=== PATIENT | female | born 1955 | race Caucasian/White ===

== ENCOUNTER 2019-11-12 19:05 | Observation (INO) ==
[2019-11-12] MEDS ORDERED: Naloxone 0.4 MG/ML INJ IVP PRN (22:19)
[2019-11-12] MEDS ORDERED: Lactulose 200 GM, Sodium Chloride IRRigation 700 ML RC ONE (22:52)
[2019-11-13 00:36] LABS: Hemoglobin 13.2 g/dL (11.5-15.4); Immature Granulocytes % 0.3 % (0-4); Red Cell Distribution Width 14.1 % (11.5-14.5)
[2019-11-13 00:38] LABS: Basophils % 0.6 %; Eosinophils # 0.1 K/mcL (0.0-0.6); Eosinophils % 2.2 %; Hematocrit 38.8 % (35.3-44.9); Lymphocytes % 28.4 %; Mean Corpuscular Volume 94.2 fL (83.0-100.0); Mean Platelet Volume 12.2 fL (9.4-12.4); Monocytes # 0.4 K/mcL (0.0-1.3); Neutrophils # 2.1 K/mcL (1.6-8.9); Platelet Count 38 K/mcL (140-400); Red Blood Count 4.12 M/mcL (3.82-4.97); Segmented Neutrophils % 58.5 %; White Blood Count 3.6 K/mcL (4.3-11.1)
[2019-11-13 00:40] LABS: INR 1.5; Prothrombin Time 16.8 Seconds (9.4-12.1)
[2019-11-13 00:54] LABS: Alanine Aminotransferase 44 Units/L (7-52); Albumin 2.9 g/dL (3.5-5.7); Alkaline Phosphatase 120 Units/L (34-104); Aspartate Amino Transferase 48 Units/L (13-39); BUN/Creatinine Ratio 13 (6-26); Bilirubin,Total 4.2 mg/dL (0.3-1.0); Blood Urea Nitrogen 12 mg/dL (8-23); Calcium 8.8 mg/dL (8.6-10.3); Carbon Dioxide 20 mEq/L (23-29); Chloride 111 mEq/L (98-107); Globulin 2.8 g/dL (2.4-3.5); Glucose 84 mg/dL (70-105); Osmolality,Calculated 289 (280-300); Potassium 4.2 mEq/L (3.5-5.1); Sodium 140 mEq/L (136-145); Total Protein 5.7 g/dL (6.4-8.9); eGFR For African Americans > 60 (> 60); eGFR For Non-African Americans 58 (> 60)
[2019-11-13] MEDS: D5% in 0.9% NACL 1,000 ML IVC SCH ×2 (05:22→21:03)
[2019-11-13] MEDS ORDERED: *HR* Heparin 5,000 UNIT/ML VIAL SQ SCH (06:00)
[2019-11-13] MEDS ORDERED: Lactulose Oral Soln 20 GM/30 ML UDC PO ONE ×2 (06:44→20:54)
[2019-11-13] MEDS ORDERED: Lactulose 200 GM, Sodium Chloride IRRigation 700 ML RC ONE (08:42)
[2019-11-13] MEDS: Lactulose 200 GM, Sodium Chloride IRRigation 700 ML RC SCH ×2 (16:09→20:50)
[2019-11-13] MEDS: Furosemide 20 MG TABLET PO SCH (18:25)
[2019-11-13] MEDS ORDERED: Sucralfate 1 GM TABLET PO SCH (21:00)
[2019-11-13] MEDS ORDERED: traZODone 50 MG TABLET PO SCH (21:00)
[2019-11-14 05:16] LABS: Basophils % 0.4 %
[2019-11-14 05:18] LABS: Eosinophils # 0.1 K/mcL (0.0-0.6); Eosinophils % 4.4 %; Hematocrit 36.2 % (35.3-44.9); Hemoglobin 12.3 g/dL (11.5-15.4); Immature Granulocytes % 0.4 % (0-4); Lymphocytes # 0.9 K/mcL (0.6-4.6); Lymphocytes % 34.2 %; Mean Corpuscular Hemoglobin 32.2 pg (28.0-33.3); Mean Corpuscular Volume 94.8 fL (83.0-100.0); Mean Platelet Volume 12.7 fL (9.4-12.4); Monocytes # 0.2 K/mcL (0.0-1.3); Neutrophils # 1.5 K/mcL (1.6-8.9); Platelet Count 39 K/mcL (140-400); Red Blood Count 3.82 M/mcL (3.82-4.97); Red Cell Distribution Width 14.5 % (11.5-14.5); Segmented Neutrophils % 53.6 %; White Blood Count 2.7 K/mcL (4.3-11.1)
[2019-11-14 05:25] LABS: Alanine Aminotransferase 40 Units/L (7-52); Albumin 2.7 g/dL (3.5-5.7); Albumin/Globulin Ratio 1.1 (1.1-2.2); Alkaline Phosphatase 107 Units/L (34-104); Aspartate Amino Transferase 48 Units/L (13-39); BUN/Creatinine Ratio 12 (6-26); Bilirubin,Total 4.2 mg/dL (0.3-1.0); Blood Urea Nitrogen 11 mg/dL (8-23); Calcium 7.9 mg/dL (8.6-10.3); Carbon Dioxide 24 mEq/L (23-29); Chloride 114 mEq/L (98-107); Globulin 2.5 g/dL (2.4-3.5); Glucose 117 mg/dL (70-105); Magnesium 1.5 mg/dL (1.6-2.6); Osmolality,Calculated 298 (280-300); Potassium 3.3 mEq/L (3.5-5.1); Sodium 144 mEq/L (136-145); Total Protein 5.2 g/dL (6.4-8.9); eGFR For African Americans > 60 (> 60); eGFR For Non-African Americans 60 (> 60)
[2019-11-14] MEDS ORDERED: Lactulose Oral Soln 20 GM/30 ML UDC PO ONE (05:30)
[2019-11-14 06:56] VITALS: BP 126/72
[2019-11-14] MEDS: Furosemide 20 MG TABLET PO SCH (07:55)
[2019-11-14] MEDS ORDERED: Spironolactone 25 MG TABLET PO SCH (09:00)
[2019-11-14] MEDS ORDERED: Lactulose Oral Soln 20 GM/30 ML UDC PO SCH (09:00)
== END 2019-11-14 14:05 | disposition home or self-care (01) ==
LOC: 3BNU → SUATTDRO 20:45
PROVIDERS: ADMIT Family Medicine; ATTEND Internal Medicine

== ENCOUNTER 2019-11-27 14:47 | Observation (INO) ==
[2019-11-27 15:54] LABS: Bilirubin,Urine Negative (Negative); Blood,Urine Small (Negative); Clarity,Urine Clear (Clear); Color,Urine Light-Yellow (Yellow); Glucose,Urine (UA) Normal (Normal); Hyaline Casts,Urine Few per lpf (None Seen); Ketones,Urine Negative (Negative); Leukocyte Esterase,Urine Negative (Negative); Mucus,Urine Few per lpf (None-Few); Nitrite,Urine Negative (Negative); Protein,Urine Negative (Neg-Trace); Specific Gravity,Urine 1.008 (1.010-1.025); Squamous Epithelial Cell,Urine Few per hpf (None-Few); Urobilinogen,Urine Normal (Normal); WBC,Urine 0-3 per hpf (0-3)
[2019-11-27 15:58] LABS: Amphetamine Screen,Urine Negative ng/mL (Cutoff=1000); Barbiturate Screen,Urine Negative ng/mL (Cutoff=200); Benzodiazepines Screen,Urine Negative ng/mL (Cutoff=200); Cannabinoid Screen,Urine Negative ng/mL (Cutoff = 50); Cocaine Screen,Urine Negative ng/mL (Cutoff= 300); Opiate Screen,Urine Negative ng/mL (Cutoff=300); Phencyclidine Screen,Urine Negative ng/mL (Cutoff=25)
[2019-11-27 16:10] LABS: Basophils % 0.7 %; Red Cell Distribution Width 14.9 % (11.5-14.5)
[2019-11-27 16:12] LABS: Eosinophils # 0.1 K/mcL (0.0-0.6); Eosinophils % 3.7 %; Hematocrit 40.6 % (35.3-44.9); Hemoglobin 13.6 g/dL (11.5-15.4); Immature Platelets 7.9 % (1.1-6.1); Lymphocytes # 0.7 K/mcL (0.6-4.6); Lymphocytes % 24.4 %; Mean Corpuscular HGB Conc 33.5 g/dL (31.6-35.5); Mean Corpuscular Hemoglobin 31.6 pg (28.0-33.3); Mean Corpuscular Volume 94.4 fL (83.0-100.0); Mean Platelet Volume 12.9 fL (9.4-12.4); Monocytes # 0.2 K/mcL (0.0-1.3); Monocytes % 7.4 %; Neutrophils # 1.7 K/mcL (1.6-8.9); Segmented Neutrophils % 63.8 %; White Blood Count 2.7 K/mcL (4.3-11.1)
[2019-11-27 16:14] LABS: Platelet Count 35 K/mcL (140-400)
[2019-11-27 16:33] LABS: Alanine Aminotransferase 73 Units/L (7-52); Albumin 3.3 g/dL (3.5-5.7); Alkaline Phosphatase 156 Units/L (34-104); Aspartate Amino Transferase 62 Units/L (13-39); BUN/Creatinine Ratio 11 (6-26); Bilirubin,Direct 0.6 mg/dL (0.0-0.2); Bilirubin,Indirect 2.8 mg/dL (0.0-1.0); Bilirubin,Total 3.4 mg/dL (0.3-1.0); Blood Urea Nitrogen 12 mg/dL (8-23); Calcium 9.4 mg/dL (8.6-10.3); Carbon Dioxide 28 mEq/L (23-29); Chloride 107 mEq/L (98-107); Ethanol < 10 mg/dL (Less than 10); Globulin 3.2 g/dL (2.4-3.5); Glucose 102 mg/dL (70-105); Osmolality,Calculated 290 (280-300); Potassium 4.3 mEq/L (3.5-5.1); Sodium 140 mEq/L (136-145); Total Protein 6.5 g/dL (6.4-8.9); Troponin I < 0.03 ng/mL (< 0.04); eGFR For African Americans > 60 (> 60); eGFR For Non-African Americans 51 (> 60)
[2019-11-27] MEDS ORDERED: Lactulose Oral Soln 20 GM/30 ML UDC PO ONE (16:40)
[2019-11-27] MEDS ORDERED: Naloxone 0.4 MG/ML INJ IVP PRN (18:06)
[2019-11-27] MEDS ORDERED: Ondansetron 4 MG/2 ML VIAL IVP PRN (18:06)
[2019-11-27] MEDS ORDERED: Lactulose 200 GM, Sodium Chloride IRRigation 700 ML RC ONE (18:07)
[2019-11-27 18:42] LABS: INR 1.4; Prothrombin Time 15.7 Seconds (9.4-12.1)
[2019-11-27] MEDS ORDERED: MetroNIDAZOLE 500 MG/100 ML 500 MG/100 ML BAG IVPB ONE (18:45)
[2019-11-28 02:21] LABS: Basophils % 0.4 %; Red Cell Distribution Width 14.6 % (11.5-14.5)
[2019-11-28 02:23] LABS: Eosinophils # 0.1 K/mcL (0.0-0.6); Eosinophils % 3.5 %; Hematocrit 36.7 % (35.3-44.9); Hemoglobin 12.2 g/dL (11.5-15.4); Immature Platelets 7.2 % (1.1-6.1); Lymphocytes # 0.7 K/mcL (0.6-4.6); Lymphocytes % 32.3 %; Mean Corpuscular HGB Conc 33.2 g/dL (31.6-35.5); Mean Corpuscular Hemoglobin 31.4 pg (28.0-33.3); Mean Corpuscular Volume 94.6 fL (83.0-100.0); Mean Platelet Volume 12.3 fL (9.4-12.4); Monocytes # 0.2 K/mcL (0.0-1.3); Monocytes % 7.4 %; Neutrophils # 1.3 K/mcL (1.6-8.9); Platelet Count 36 K/mcL (140-400); Red Blood Count 3.88 M/mcL (3.82-4.97); Segmented Neutrophils % 56.4 %; White Blood Count 2.3 K/mcL (4.3-11.1)
[2019-11-28 02:26] LABS: INR 1.5; Prothrombin Time 17.2 Seconds (9.4-12.1)
[2019-11-28 02:42] LABS: Alanine Aminotransferase 63 Units/L (7-52); Albumin 2.7 g/dL (3.5-5.7); Alkaline Phosphatase 127 Units/L (34-104); Aspartate Amino Transferase 54 Units/L (13-39); BUN/Creatinine Ratio 11 (6-26); Bilirubin,Total 3.3 mg/dL (0.3-1.0); Blood Urea Nitrogen 11 mg/dL (8-23); Calcium 8.5 mg/dL (8.6-10.3); Carbon Dioxide 24 mEq/L (23-29); Chloride 109 mEq/L (98-107); Globulin 2.7 g/dL (2.4-3.5); Glucose 81 mg/dL (70-105); Magnesium 1.6 mg/dL (1.6-2.6); Osmolality,Calculated 288 (280-300); Potassium 3.4 mEq/L (3.5-5.1); Sodium 140 mEq/L (136-145); Total Protein 5.4 g/dL (6.4-8.9); eGFR For African Americans > 60 (> 60); eGFR For Non-African Americans 54 (> 60)
[2019-11-28 06:59] VITALS: BP 120/66
[2019-11-28] MEDS ORDERED: Ergocalciferol (VIT D2) 50,000 UNIT (1.25MG) CAP PO SCH (08:45)
[2019-11-28] MEDS ORDERED: NON-FORMULARY MEDICATION 1 EACH EACH (Omega-3s/Dha/Epa/Fish Oil [Fish Oil 1,000 Mg Softgel PO SCH (09:00)
[2019-11-28] MEDS ORDERED: Ascorbic Acid 500 MG TABLET PO SCH (09:00)
[2019-11-28] MEDS ORDERED: Cyanocobalamin (B-12) 1,000 MCG TABLET PO SCH (09:00)
[2019-11-28] MEDS ORDERED: Spironolactone 25 MG TABLET PO SCH (09:00)
[2019-11-28] MEDS ORDERED: Multivit/Ca/Min/Fe/FA 1 TAB TABLET PO SCH (09:00)
[2019-11-28] MEDS ORDERED: Lactulose Oral Soln 20 GM/30 ML UDC PO SCH (09:00)
[2019-11-28] MEDS ORDERED: Loratadine 10 MG TABLET PO SCH (09:00)
[2019-11-28] MEDS ORDERED: Furosemide 20 MG TABLET PO SCH (09:00)
[2019-11-28] MEDS ORDERED: Sucralfate 1 GM TABLET PO SCH (21:00)
[2019-11-28] MEDS ORDERED: traZODone 50 MG TABLET PO SCH (21:00)
== END 2019-11-28 11:55 | disposition home or self-care (01) ==
LOC: EMEROOARM 14:47 → 3BNU 14:47 → SUATTDRO 19:27 → 3BNU 20:18
PROVIDERS: ADMIT Student in an Organized Health Care Education/Training Program; ATTEND Internal Medicine